=== PATIENT | male | born 1995 | race Caucasian/White ===

== ENCOUNTER 2024-03-01 12:12 | Day surgery (SDC) | payer OTHER ==
[2024-02-28 11:12] VITALS: BMI 32.3
--- NOTE | 2024-02-29 14:24 | P.HPOR ---
History of Present Illness H&P Date: 02/29/24 Subjective: This is a 28 year old male that presents today for follow up evaluation regarding a several year history of bilateral hand numbness and tingling with associated weakness and pain. 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 Has a history of a ganglion cyst excision performed in 2016 in the right wrist. He underwent an EMG and nerve conduction velocity testing and is here to discuss results. He's tried nighttime bracing with no relief of his symptoms. He states the numbness on the left has improved but the right side is staying the same/ slightly progressing. Physical Examination: LUE: AIN/PIN/Radial/Ulnar/Median motor intact. Radial/Ulnar/Median SILT. 2+/4 Radial/Ulnar pulses palpated. 5/5 APB, 5/5 FDI. Negative Finkelsteins, negative CMC grind, positive Durkan's compression. RUE: AIN/PIN/Radial/Ulnar/Median motor intact. Radial/Ulnar/Median SILT. 2+/4 Radial/Ulnar pulses palpated. 5/5 APB, 5/5 FDI. Negative Finkelsteins, negative CMC grind, Negative Durkan's compression. Numbness in ring and small fingers reproduced with elbow flexion. Imaging: EMG/NCV over bilateral upper extremities demonstrates mild/moderate right cubital tunnel syndrome, 45m/s velocity below elbow. Impression: 1.) Right cubital tunnel syndrome Plan: Diagnosis and treatment options were discussed with the patient. He has failed conservative treatment and wishes to pursue a right open cubital tunnel release. Risks and benefits of surgery including bleeding, infection, damage to surrounding tissue, need for further surgery, residual numbness were discussed and the patient wished to go forward with surgery. He works a light factory job and wishes to return to work 1 week after. We discussed the elbow will remain sore and likely symptomatic for at least 4 to 6 weeks but he states he can only afford to be off for 1 week. The patient was agreeable with this plan. -Felix Bishop DO Orthopedic Hand/Upper Extremity Surgeon Past Medical History Past Medical History: No Reported History, Skin Disorder Additional Past Medical History / Comment(s): ROSACEA History of Any Multi-Drug Resistant Organisms: None Reported Past Surgical History: Hernia Repair Additional Past Surgical History / Comment(s): CYST REMOVED RT WRIST Past Anesthesia/Blood Transfusion Reactions: No Reported Reaction Smoking Status: Never smoker - Past Family History Mother Family Medical History: No Reported History Medications and Allergies Home Medications Medication Instructions Recorded Confirmed Type Dextroamphetamine/Amphetamine 10 mg PO BID 02/28/24 02/28/24 History [Adderall] Naproxen [Naprosyn] 500 mg PO Q12HR PRN 02/28/24 02/28/24 History Venlafaxine HCl [Effexor] 37.5 mg PO HS 02/28/24 02/28/24 History Allergies Allergy/AdvReac Type Severity Reaction Status Date / Time amoxicillin Allergy Rash/Hives Verified 02/28/24 11:01 sulfamethoxazole Allergy Rash/Hives Verified 02/28/24 11:01 [From Bactrim] trimethoprim [From Bactrim] Allergy Rash/Hives Verified 02/28/24 11:01 Physical Examination Osteopathic Statement: *. No significant issues noted on an osteopathic structural exam other than those noted in the History and Physical/Consult.
[~2024-03-01 12:12] MED LIST: HYDROmorphone 0.5 MG/0.5 ML SYRINGE IVP PRN; LIDOCAINE 1% (10MG/ML) FOR IV START INTRADERMA PRN; MIDAZOLAM 2 MG/2 ML VIAL IV PRN; Pre Op ABX Message 1 EACH MISC MISCELLANE ONE
[2024-03-01] MEDS: IV FLUID CONTINUATION 1,000 ML IV ONE (13:11)
[2024-03-01] MEDS: LACTATED RINGERS 1,000 ML IV SCH (13:12)
[2024-03-01] MEDS: ONDANSETRON 4 MG/2 ML VIAL IVP ONE (13:12)
[2024-03-01] MEDS: DEXAMETHASONE SOD PHOSPHATE 4 MG/ML 1 ML VIAL IV ONE (13:13)
[2024-03-01] MEDS ORDERED: MIDAZOLAM 2 MG/2 ML VIAL ONE (13:34)
[2024-03-01] MEDS ORDERED: fentaNYL (PF) 50 MCG/ML 2 ML AMP ONE (13:34)
[2024-03-01] MEDS ORDERED: LIDOCAINE 1% INJ 10MG/ML (20 ML MDV) ONE (13:34)
[2024-03-01] MEDS ORDERED: PROPOFOL 10 MG/ML 20 ML VIAL IV ONE (13:34)
[2024-03-01] MEDS: BUPIVACAINE (PF) 0.5% 30 ML VIAL SQ ONE ×2 (13:56)
--- NOTE | 2024-03-01 14:23 | P.OP ---
Date of Procedure: 03/01/24 Preoperative Diagnosis: Right cubital tunnel syndrome Postoperative Diagnosis: Right cubital tunnel syndrome Procedure(s) Performed: Right open cubital tunnel release, in situ. Anesthesia: GETA Surgeon: Felix Bishop Herb Grower #1: Mahamed Pate Estimated Blood Loss (ml): 0 Pathology: none sent Condition: stable Disposition: PACU Description of Procedure: This is a 28 year old male who presented today for a right open cubital tunnel release after having failed conservative treatment. Risks and benefits of surgery were discussed with the patient including bleeding, damage to surrounding tissue, infection, need for further surgery as well as risks of anesthesia including pulmonary embolism and even and the patient wished to proceed with surgical intervention. The patient was seen in the pre-operative area by myself. Consent and H&P were completed and updated. The correct extremity was marked in the pre-operative area by myself and all other questions were answered. Operative Narrative: The patient was brought to the operating room by the department of anesthesia. They remained on the portable stretcher and a rolling hand table was brought to the side of the operative extremity. Pre-operative time out was performed indicating the correct patient, procedure and laterality. All in the room agreed. Pre-operative antibiotics were given prior to skin incision. The patient was then drifted off to sleep by the department of anesthesia. A nonsterile tourniquet was then applied to the operative extremity and the right upper extremity was then prepped and draped in normal sterile fashion. The oper ative extremity was the exsanguinated with an esmarch bandage and the tourniquet was inflated to 250mmHg. Attention was brought to the medial elbow. 15 blade scalpel was used to incise skin in between the medial epicondyle and olecranon in a curvlinear and longitudinal fashion. Blunt dissection was taken down through subcutaneous tissue with tenotomy scissors and branches of the MABCN were identified and protected. Dissection was carried proximally and the ulnar nerve was identified and released from it's proximal soft tissue attachements, the nerve did not appear compressed at this location. Dissection was then carried distally and calvo's ligament was released at the medial epicondyle, the nerve appeared compressed at this location. Dissection was then carried out further distal and the fascia of the two heads of the FCU were incised and the ulnar nerve was decompressed with [place] and tenotomy scissors and appeared to be tension free, the nerve had an hourglass shape and was erythematous between the heads of the FCU muscle bellies but was now decompressed. The elbow was the flexed and extended and the ulnar nerve appeared to be stable in a tension free manner. 20cc"s 0.5% bupivacaine was injected into the subcutaneous tissues. Skin closure was performed with interrupted 4-0 Monocryl sutures followed by running 4-0 Monocryl sutures tourniquet was then let down and the hand had immediate perfusion. The patient was then woken by the department of anesthesia and transferred to PACU in stable condition. Felix Bishop D.O. Orthopedic Hand/Upper Extremity Surgeon
[2024-03-01 14:32] VITALS: TEMP 98.2
[2024-03-01 14:43] VITALS: RESP 16
[2024-03-01 15:36] VITALS: BP 122/80; PULSE 76
== END 2024-03-01 15:53 | disposition home or self-care (01) ==
LOC: OR 12:12
PROVIDERS: ATTEND Orthopaedic Surgery Hand Surgery
DX: G56.21 Lesion of ulnar nerve, right upper limb (principal); Z88.0 Allergy status to penicillin; Z88.2 Allergy status to sulfonamides; Z88.3 Allergy status to other anti-infective agents; Z79.899 Other long term (current) drug therapy
CPT/HCPCS: 64718; J2250; J1100; J2405; J2001; J3010; J2704; J0665